=== PATIENT | male | born 1960 | race African-American/Black ===

== ENCOUNTER 2024-02-29 12:57 | Emergency (ER) | payer MEDICARE ==
[~2024-02-29] VITALS: Ht 182.9 cm; Wt 99.7 kg
[~2024-02-29 12:57] MED LIST: MOTRIN800 MG PO
[2024-02-29] MEDS ORDERED: NAPROXEN500 MG PO (14:27)
== END 2024-02-29 14:41 | disposition home or self-care (01) ==
LOC: ED 12:57
DX: S96.911A Strain of unspecified muscle and tendon at ankle and foot level, right foot, initial encounter (principal); I10 Essential (primary) hypertension; X58.XXXA Exposure to other specified factors, initial encounter